=== PATIENT | female | born 1965 | race Caucasian/White ===

== ENCOUNTER → 2018-08-27 | Outpatient (REF) | payer OTHER ==
[2018-09-03 15:30] LABS: HPV HYBRID CAPTURE II Positive (Negative)
== END ==
LOC: M LAB LCGH 14:58
PROVIDERS: ATTEND Obstetrics & Gynecology
DX: Z12.4 Encounter for screening for malignant neoplasm of cervix (principal); R87.610 Atypical squamous cells of undetermined significance on cytologic smear of cervix (ASC-US)
CPT/HCPCS: 87624; G0123

== ENCOUNTER → 2018-09-18 | Outpatient (REF) | payer MEDICARE | LOC: M LAB LCGH 12:47 | PROVIDERS: ATTEND Obstetrics & Gynecology | DX: Z12.4 Encounter for screening for malignant neoplasm of cervix (principal) ==

== ENCOUNTER → 2019-02-27 | Outpatient (REF) | LOC: M LAB LCGH 12:04 | PROVIDERS: ATTEND Obstetrics & Gynecology | DX: N93.9 Abnormal uterine and vaginal bleeding, unspecified (principal) ==